=== PATIENT | male | born 1980 | race Caucasian/White ===

== ENCOUNTER 2021-12-28 09:57 | Emergency (ER) | payer BC, MEDICAID, SELFPAY ==
[2021-12-28 09:59] VITALS: BP 141/93; PULSE 124; RESP 22; TEMP 37.1; O2SAT 100; BMI 24.2
--- NOTE | 2021-12-28 10:14 | W.ED.OVERDOS ---
Documented by User: OSEAS Ibarra 12/28/21 15:23 HPI - Overdose General: Chief Complaint: General Medical Stated Complaint: REACTION TO METH Time Seen by Provider: 12/28/21 09:59 Source: patient and EMS Mode of arrival: EMS Limitations: no limitations History of Present Illness: Patient is a 41-year-old male who arrives to the ED via EMS with a complaint of a methamphetamine overdose. Patient states around 6 AM today he smoked 1/2 gram of methamphetamine while at work. 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 He reportedly was found in one of the sheds. Patient states he feels very jittery and shaky upon arrival. He is alert and oriented upon arrival. Patient had reportedly been clean for several months. He was given 2 mg IV Ativan in route. He states this did slightly help. Of note patient also states he discontinued his Wellbutrin approximately 5 days ago. MD complaint: intentional overdose Onset (ago): hour(s) Time: 06:00 Timing confirmed by: other (coworkers) How Overdose Was Discovered: other (found by coworkers ) Context: Accidental Overdose: wanted to get high Treatments Prior to Arrival: IV fluids and other (ativan, zofran) Review of Systems Const: Denies: fever(s) Card: Denies: chest pain, palpitations or irregular heart rhythm Resp: Denies: dyspnea GI: Denies: abdominal pain, vomiting or diarrhea Musc: Denies: neck pain, back pain, extremity pain or joint pain Skin/Breast: Denies: rash Neuro: Denies: headache(s) or seizure-like activity [facility] ED PFSH: Social History Smoking and tobacco status: current every day smoker Physical Exam Const: COMMON NORMALS: patient oriented x3, no limitations and alert GENERAL APPEARANCE: cooperative and anxious ORIENTATION/CONSCIOUSNESS: Yes awake, Yes oriented to person, Yes oriented to place and Yes oriented to time HENMT: COMMON NORMALS: normocephalic and atraumatic HEAD & SCALP: normal to inspection, normocephalic and atraumatic Eye: GENERAL EYE: normal light reflex DIRECT OPHTHALMOSCOPY: Yes normal light reflex Resp: COMMON NORMALS: normal respiratory effort and clear to auscultation bilaterally AUSCULTATION: clear to auscultation bilaterally Cardio: COMMON NORMALS: regular rate and regular rhythm RATE: regular rate RHYTHM: regular rhythm Extremity: GENERAL: Yes normal exam except as noted Neuro: RICCO COMA SCALE: document GCS findings [place] coma scale eye opening: Spontaneous [place] coma scale verbal response: Orientated [place] coma scale motor response: Obey commands [place] coma scale total score: 15 COMMON NORMALS: patient oriented x3, moves all extremities, no focal motor deficits and no sensory deficits noted SENSORIUM/ORIENTATION: Yes alert, Yes oriented to person, Yes oriented to place and Yes oriented to time Course Reevaluation(s): Reevaluation #1: Patient is resting comfortably in NAD. Vitals are stable. Time: 11:39 Vital Signs: Vital signs: Vital Signs Temperature 98.8 F 12/28/21 09:59 Pulse Rate 90 12/28/21 12:39 Respiratory Rate 16 12/28/21 12:39 Blood Pressure 151/77 12/28/21 12:39 Pulse Oximetry 98 12/28/21 12:39 MDM - Overdose Lab Data : 12/28/21 10:35 12/28/21 10:35 Laboratory Results WBC 9.3 10^3/uL (4.0-10.0) 12/28/21 10:35 RBC 5.28 10^6/uL (4.1-5.3) 12/28/21 10:35 Hgb 14.5 g/dL (11.7-16.6) 12/28/21 10:35 Hct 42.2 % (42.0-52.0) 12/28/21 10:35 MCV 79.9 fl (80-94) L 12/28/21 10:35 MCH 27.5 pg (28.0-34.0) L 12/28/21 10:35 MCHC 34.4 g/dL (30.0-36.0) 12/28/21 10:35 RDW 13.7 % (12.1-15.1) 12/28/21 10:35 Plt Count 373 10^3/cmm (130-400) 12/28/21 10:35 MPV 10.3 fL (7.4-10.4) 12/28/21 10:35 Neut % (Auto) 75.4 % 12/28/21 10:35 Lymph % (Auto) 11.2 % 12/28/21 10:35 Hunt % (Auto) 11.1 % 12/28/21 10:35 Eos % (Auto) 1.6 % 12/28/21 10:35 Baso % (Auto) 0.5 % 12/28/21 10:35 Neut # (Auto) 6.96 10^3/uL (1.8-7.7) 12/28/21 10:35 Lymph # (Auto) 1.0 10^3/uL (0.8-4.8) 12/28/21 10:35 Hunt # (Auto) 1.0 10^3/uL (0.2-0.9) H 12/28/21 10:35 Eos # (Auto) 0.2 10^3/uL (0.0-0.8) 12/28/21 10:35 Baso # (Auto) 0.1 10^3/uL (0.0-0.1) 12/28/21 10:35 Nucleated RBC % (auto) 0 % 12/28/21 10:35 Nucleated RBCs # 0.0 /100WBC 12/28/21 10:35 Sodium 135 mmol/L (136-145) L 12/28/21 10:35 Potassium 3.4 mmol/L (3.5-5.1) L 12/28/21 10:35 Chloride 99 mmol/L (98-107) 12/28/21 10:35 Carbon Dioxide 24 mmol/L (22-29) 12/28/21 10:35 Anion Gap 15.4 (5-19) 12/28/21 10:35 BUN 27 mg/dL (6-20) H 12/28/21 10:35 Creatinine 1.1 mg/dL (0.7-1.2) 12/28/21 10:35 GFR Calculation 73.1 mL/min (90-130) L 12/28/21 10:35 Glucose 98 mg/dL (65-115) 12/28/21 10:35 Calculated Osmolality 285 mOsm/kg (285-295) 12/28/21 10:35 Calcium 9.3 mg/dL (8.5-10.5) 12/28/21 10:35 Total Bilirubin 1.1 mg/dL (0.15-1.2) 12/28/21 10:35 AST 24 U/L (0-40) 12/28/21 10:35 ALT 26 U/L (0-41) 12/28/21 10:35 Alkaline Phosphatase 94 IU/L (40-130) 12/28/21 10:35 Creatine Kinase 448 U/L (39-308) H* 12/28/21 10:35 CK-MB (CK-2) 10.7 ng/mL (0-10.4) H 12/28/21 10:35 CK-MB (CK-2) Rel Index 2.3 % (0.0-5.3) 12/28/21 10:35 Total Protein 7.7 g/dL (6.6-8.7) 12/28/21 10:35 Albumin 4.5 g/dL (3.5-5.2) 12/28/21 10:35 Globulin 3.2 g/dL (1.3-4.6) 12/28/21 10:35 Salicylates < 0.3 mg/dL (3-10) L 12/28/21 10:35 Acetaminophen < 5.0 ug/mL (10-30) L 12/28/21 10:35 Ethyl Alcohol < 10 mg/dL (0-10) 12/28/21 10:35 Discharge Plan Discharge Patient Disposition: Home Clinical Impression: Methamphetamine abuse Condition: Stable Prescriptions: No Action BuSpar 5 mg Tablet 5 mg PO TID 0RF trazodone 50 mg Tablet 25 mg PO BEDTIME 0RF hydroxyzine pamoate 50 mg Capsule 50 mg PO TID PRN (Reason: Anxiety) 0RF prazosin 2 mg Capsule 2 mg PO DAILY 0RF Wellbutrin XL 150 mg Tablet Extended Release 24 Hr 150 mg PO QAM 0RF Discharge Orders: Discharge ED (Routine); Ordered 12/28/21 Ordered By: Tc Espitia Patient Instructions: Methamphetamine Abuse, Opioid Safety Activity Restrictions/Additional Instructions: Home and rest. Drink plenty of fluids. Follow-up with primary care. Sign Out Sign Out Data: Patient Sign Out occurred on 12/28/21 at 17:09. Patient's care was discussed, and care was transferred from to Tc Espitia. Post-Handoff Eval: Patient was alert and talkative, had spoke with his mother who will pay for his cab ride home. Coding Level of Care Code ED Electronics Lead for Chg Fwd Exam Detailed Documented by User: ELENI Fernandes 12/28/21 17:09 HPI - Overdose General: Chief Complaint: General Medical Stated Complaint: REACTION TO METH Time Seen by Provider: 12/28/21 09:59 PFSH ED PFSH: Social History Smoking and tobacco status: current every day smoker Physical Exam Neuro: RICCO COMA SCALE: document GCS findings [place] coma scale total score: 15 Course Vital Signs: Vital signs: Vital Signs Temperature 98.8 F 12/28/21 09:59 Pulse Rate 90 12/28/21 12:39 Respiratory Rate 16 12/28/21 12:39 Blood Pressure 151/77 12/28/21 12:39 Pulse Oximetry 98 12/28/21 12:39 MDM - Overdose Medical Decision Making Received this patient from Magaly Cruz, on my arrival to the ER went to the wound patient was alert and wanted to go home patient was discharged home. Lab Data : 12/28/21 10:35 12/28/21 10:35 Laboratory Results WBC 9.3 10^3/uL (4.0-10.0) 12/28/21 10:35 RBC 5.28 10^6/uL (4.1-5.3) 12/28/21 10:35 Hgb 14.5 g/dL (11.7-16.6) 12/28/21 10:35 Hct 42.2 % (42.0-52.0) 12/28/21 10:35 MCV 79.9 fl (80-94) L 12/28/21 10:35 MCH 27.5 pg (28.0-34.0) L 12/28/21 10:35 MCHC 34.4 g/dL (30.0-36.0) 12/28/21 10:35 RDW 13.7 % (12.1-15.1) 12/28/21 10:35 Plt Count 373 10^3/cmm (130-400) 12/28/21 10:35 MPV 10.3 fL (7.4-10.4) 12/28/21 10:35 Neut % (Auto) 75.4 % 12/28/21 10:35 Lymph % (Auto) 11.2 % 12/28/21 10:35 Hunt % (Auto) 11.1 % 12/28/21 10:35 Eos % (Auto) 1.6 % 12/28/21 10:35 Baso % (Auto) 0.5 % 12/28/21 10:35 Neut # (Auto) 6.96 10^3/uL (1.8-7.7) 12/28/21 10:35 Lymph # (Auto) 1.0 10^3/uL (0.8-4.8) 12/28/21 10:35 Hunt # (Auto) 1.0 10^3/uL (0.2-0.9) H 12/28/21 10:35 Eos # (Auto) 0.2 10^3/uL (0.0-0.8) 12/28/21 10:35 Baso # (Auto) 0.1 10^3/uL (0.0-0.1) 12/28/21 10:35 Nucleated RBC % (auto) 0 % 12/28/21 10:35 Nucleated RBCs # 0.0 /100WBC 12/28/21 10:35 Sodium 135 mmol/L (136-145) L 12/28/21 10:35 Potassium 3.4 mmol/L (3.5-5.1) L 12/28/21 10:35 Chloride 99 mmol/L (98-107) 12/28/21 10:35 Carbon Dioxide 24 mmol/L (22-29) 12/28/21 10:35 Anion Gap 15.4 (5-19) 12/28/21 10:35 BUN 27 mg/dL (6-20) H 12/28/21 10:35 Creatinine 1.1 mg/dL (0.7-1.2) 12/28/21 10:35 GFR Calculation 73.1 mL/min (90-130) L 12/28/21 10:35 Glucose 98 mg/dL (65-115) 12/28/21 10:35 Calculated Osmolality 285 mOsm/kg (285-295) 12/28/21 10:35 Calcium 9.3 mg/dL (8.5-10.5) 12/28/21 10:35 Total Bilirubin 1.1 mg/dL (0.15-1.2) 12/28/21 10:35 AST 24 U/L (0-40) 12/28/21 10:35 ALT 26 U/L (0-41) 12/28/21 10:35 Alkaline Phosphatase 94 IU/L (40-130) 12/28/21 10:35 Creatine Kinase 448 U/L (39-308) H* 12/28/21 10:35 CK-MB (CK-2) 10.7 ng/mL (0-10.4) H 12/28/21 10:35 CK-MB (CK-2) Rel Index 2.3 % (0.0-5.3) 12/28/21 10:35 Total Protein 7.7 g/dL (6.6-8.7) 12/28/21 10:35 Albumin 4.5 g/dL (3.5-5.2) 12/28/21 10:35 Globulin 3.2 g/dL (1.3-4.6) 12/28/21 10:35 Salicylates < 0.3 mg/dL (3-10) L 12/28/21 10:35 Acetaminophen < 5.0 ug/mL (10-30) L 12/28/21 10:35 Ethyl Alcohol < 10 mg/dL (0-10) 12/28/21 10:35 Discharge Plan Discharge Patient Disposition: Home Clinical Impression: Methamphetamine abuse Condition: Stable Prescriptions: No Action BuSpar 5 mg Tablet 5 mg PO TID 0RF trazodone 50 mg Tablet 25 mg PO BEDTIME 0RF hydroxyzine pamoate 50 mg Capsule 50 mg PO TID PRN (Reason: Anxiety) 0RF prazosin 2 mg Capsule 2 mg PO DAILY 0RF Wellbutrin XL 150 mg Tablet Extended Release 24 Hr 150 mg PO QAM 0RF Discharge Orders: Discharge ED (Routine); Ordered 12/28/21 Ordered By: Tc Espitia Patient Instructions: Methamphetamine Abuse, Opioid Safety Activity Restrictions/Additional Instructions: Home and rest. Drink plenty of fluids. Follow-up with primary care. Sign Out Sign Out Data: Patient Sign Out occurred on 12/28/21 at 17:09. Patient's care was discussed, and care was transferred from to Tc Espitia. Post-Handoff Eval: Patient was alert and talkative, had spoke with his mother who will pay for his cab ride home. Coding Level of Care Code ED Electronics Lead for Deandreg Fwd Exam Detailed
[2021-12-28] MEDS: sodium chloride 0.9% 1,000 ML 999 ML IV (10:20)
[2021-12-28] MEDS: LORazepam 2 mg/mL INJ 1 mL IVP (10:20)
--- NOTE | 2021-12-28 10:37 | PC.PHAR ---
PT UNABLE TO VERIFY MEDICATIONS-MEDICATIONS ENTERED ARE WHAT [facility] STATES THEY FILLED RECENTLY FOR THE PT NOTES ARE MADE IN THE PHARMACY COMMENTS
[2021-12-28 11:56] LABS: Basophils # 0.1 10^3/uL (0.0-0.1); Basophils % 0.5 %; Eosinophils # 0.2 10^3/uL (0.0-0.8); Eosinophils % 1.6 %; Hematocrit 42.2 % (42.0-52.0); Hemoglobin 14.5 g/dL (11.7-16.6); Lymphocytes % 11.2 %; Mean Corpuscular HGB Conc 34.4 g/dL (30.0-36.0); Mean Corpuscular Hemoglobin 27.5 pg (28.0-34.0); Mean Corpuscular Volume 79.9 fl (80-94); Mean Platelet Volume 10.3 fL (7.4-10.4); Monocytes % 11.1 %; Neutrophils # 6.96 10^3/uL (1.8-7.7); Neutrophils % 75.4 %; Nucleated Red Blood Cells % 0 %; Platelet Count 373 10^3/cmm (130-400); Red Blood Count 5.28 10^6/uL (4.1-5.3); Red Cell Distribution Width 13.7 % (12.1-15.1); White Blood Count 9.3 10^3/uL (4.0-10.0)
[2021-12-28 12:14] LABS: Alanine Aminotransferase 26 U/L (0-41); Albumin Level 4.5 g/dL (3.5-5.2); Alkaline Phosphatase 94 IU/L (40-130); Anion Gap 15.4 (5-19); Aspartate Amino Transferase 24 U/L (0-40); Blood Urea Nitrogen 27 mg/dL (6-20); Calcium 9.3 mg/dL (8.5-10.5); Carbon Dioxide 24 mmol/L (22-29); Chloride 99 mmol/L (98-107); Globulin 3.2 g/dL (1.3-4.6); Glomerular Filtration Rate 73.1 mL/min (90-130); Glucose 98 mg/dL (65-115); Osmolality Calculated 285 mOsm/kg (285-295); Potassium 3.4 mmol/L (3.5-5.1); Sodium 135 mmol/L (136-145); Total Bilirubin 1.1 mg/dL (0.15-1.2); Total Protein 7.7 g/dL (6.6-8.7)
[2021-12-28 12:26] LABS: Acetaminophen < 5.0 ug/mL (10-30); Alcohol Level < 10 mg/dL (0-10); Creatine Phosphokinase 448 U/L (39-308); Salicylate < 0.3 mg/dL (3-10)
[2021-12-28 12:39] VITALS: BP 151/77; PULSE 90; RESP 16; O2SAT 98
[2021-12-28 12:44] LABS: CKMB 10.7 ng/mL (0-10.4); CKMB Relative Index 2.3 % (0.0-5.3)
[2021-12-28 17:19] VITALS: BP 151/77; PULSE 90; RESP 16; O2SAT 98
== END 2021-12-28 17:22 | disposition home or self-care (01) ==
PROVIDERS: Physician Assistant; Emergency Provider Nurse Practitioner Family
DX: F15.10 Other stimulant abuse, uncomplicated (principal); F17.210 Nicotine dependence, cigarettes, uncomplicated
CPT/HCPCS: 80053; 80307; 82550; 82553; 85025; 96361; 96374; 99284; J2060; J7030